=== PATIENT | male | born 1955 | race Two or more races ===

== ENCOUNTER → 2023-11-21 | Outpatient (CLI) | payer MEDICARE, OTHER ==
[~2023-11-21] MED LIST: GADOTERATE MEGLUMINE 10 MMOL/20 ML VIAL IVP ONE
== END | disposition home or self-care (01) ==
LOC: RADMN 11:06
PROVIDERS: ATTEND Nurse Practitioner
DX: I67.82 Cerebral ischemia (principal); R90.82 White matter disease, unspecified; J32.9 Chronic sinusitis, unspecified; I63.81 Other cerebral infarction due to occlusion or stenosis of small artery
CPT/HCPCS: 70553; A9575